=== PATIENT | female | born 1955 | race Caucasian/White ===

== ENCOUNTER 2017-05-15 08:59 | Emergency (ER) | payer OTHER, BC ==
[~2017-05-15] VITALS: Ht 170.2 cm; Wt 110.0 kg
[~2017-05-15 08:59] MED LIST: AMLO5TAB22 PO; CEFU1TAB43 PO; LEVE500 PO
[2017-05-15 09:07] VITALS: BP 190/88; PULSE 110; RESP 22; TEMP 97.8; O2SAT 95
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
[2017-05-15 11:33] VITALS: BP 142/75
--- NOTE | 2017-05-15 21:34 | EKG ---
Date Performed: 05/15/2017 Time Performed: 09:23:38 PTAGE: 61 years EKG: SINUS TACHYCARDIA LOW QRS VOLTAGE IN PRECORDIAL LEADS INCOMPLETE RIGHT BUNDLE BRANCH BLOCK POSSIBLE ANTERIOR MYOCARDIAL INFARCTION MODERATE T-WAVE ABNORMALITY, CONSIDER LATERAL ISCHEMIA Compar ed to previous tracing, there has been loss of voltage in the precordial leads Clinical correlation i s recommended ABNORMAL ECG PREVIOUS TRACING : 12/13/2015 16.26 DOCTOR: Óscar Vickers Interpretating Date/Time 05/15/2017 21:33:25
== END 2017-05-15 11:34 | disposition home or self-care (01) ==
LOC: NEPE 08:59
DX: R07.9 Chest pain, unspecified (principal); V43.52XA Car driver injured in collision with other type car in traffic accident, initial encounter; Y92.410 Unspecified street and highway as the place of occurrence of the external cause; R94.31 Abnormal electrocardiogram [ECG] [EKG]; I10 Essential (primary) hypertension; R73.03 Prediabetes
CPT/HCPCS: 71046; 84484; 93005